=== PATIENT | female | born 1950 | race Asian ===

== ENCOUNTER 2020-04-09 04:59 | Day surgery (SDC) | payer OTHER ==
[2020-04-04 09:41] VITALS: BMI 24.1
[2020-04-09] MEDS ORDERED: MIDAZOLAM HCL 2 MG/2 ML SINGLE DOSE VIAL ONE (08:09)
[2020-04-09] MEDS ORDERED: PROPOFOL 20 ML ONE (08:09)
[2020-04-09] MEDS ORDERED: ePHEDrine SULFATE 50 MG/1 ML AMPULE ONE (08:10)
[2020-04-09] MEDS ORDERED: ONDANSETRON 4 MG/2 ML VIAL IVPUSH PRN (08:47)
[2020-04-09] MEDS ORDERED: oxyCODONE HCL 5 MG TABLET PO PRN (08:47)
[2020-04-09] MEDS ORDERED: CLINDAMYCIN PHOSPHATE 600 MG/4 ML VIAL ONE ×2 (08:55→10:03)
[2020-04-09] MEDS ORDERED: LACTATED RINGERS SOLUTION 1,000 ML IV SCH (09:00)
[2020-04-09] MEDS ORDERED: CLINDAMYCIN 900 MG PREMIX BAG IVPB ONE (10:14)
[2020-04-09] MEDS ORDERED: NEOSTIGMINE METHYLSULFATE 0.5 MG/ML - 10 ML MDV ONE (10:33)
[2020-04-09] MEDS ORDERED: BACITRACIN 15 GM TUBE TOPICAL OINTMENT ONE (12:41)
[2020-04-09] MEDS ORDERED: ACETAMINOPHEN INJECTION 100 ML IVPB ONE (13:20)
[2020-04-09] MEDS ORDERED: ACETAMINOPHEN 1000 MG/100 ML BAG IVPB ONE ×2 (13:31→16:05)
[2020-04-09 15:58] VITALS: PULSE 78
[2020-04-09 16:34] VITALS: BP 122/72; TEMP 97.8
== END 2020-04-09 16:50 | disposition home or self-care (01) ==
LOC: JASUSAT 04:59
PROVIDERS: ATTEND Obstetrics & Gynecology
PROC: 0UT04ZZ Resection of Right Ovary, Percutaneous Endoscopic Approach (ICD-10-PCS; principal; 2020-04-09 09:30)
DX: N83.201 Unspecified ovarian cyst, right side (principal)
CPT/HCPCS: 86922; 88307-TC; 94760; J0131

== ENCOUNTER 2022-03-26 08:40 | Day surgery (SDC) | payer OTHER ==
[2022-03-24 09:55] VITALS: BMI 23.7
[2022-03-26] MEDS: PHENYLEPHRINE 2.5% OPHTH SOLN 15 ML BOTTLE ONE ×3 (09:10→09:20)
[2022-03-26] MEDS: CYCLOPENTOLATE 2% OPHTH SOLN 2 ML BOTTLE ONE ×3 (09:10→09:20)
[2022-03-26] MEDS: TROPICAMIDE 1% OPHTH SOLN 15 ML BOTTLE ONE ×3 (09:10→09:20)
[2022-03-26] MEDS: CIPROFLOXACIN 0.3% EYE DROPS 5 ML BOTTLE ONE ×3 (09:10→09:20)
[2022-03-26] MEDS ORDERED: BSS (NA/CA/MG/K) BALANCED SALT SOLUTION OPHTH SOLN 15 ML BOTTLE ONE (09:59)
[2022-03-26] MEDS ORDERED: TETRACAINE 0.5% OPHTH SOLN 2 ML BOTTLE ONE (09:59)
[2022-03-26] MEDS ORDERED: CARBACHOL 0.01% INTRA-OCULAR 1.5 ML VIAL ONE (09:59)
[2022-03-26] MEDS ORDERED: LIDOCAINE 1% P/F 10 MG/ML VIAL ONE (09:59)
[2022-03-26] MEDS ORDERED: NEO/POLYMYX B SULF/DEXAMETH OPHTHALMIC 5ML BOTTLE ONE (09:59)
[2022-03-26] MEDS ORDERED: MIDAZOLAM HCL 2 MG/2 ML SINGLE DOSE VIAL ONE (10:22)
[2022-03-26] MEDS ORDERED: ONDANSETRON 4 MG/2 ML VIAL ONE (10:44)
[2022-03-26 11:30] VITALS: TEMP 98
[2022-03-26 11:34] VITALS: BP 112/72; PULSE 80; RESP 18
== END 2022-03-26 11:35 | disposition home or self-care (01) ==
LOC: FASU 08:40
PROVIDERS: ATTEND Ophthalmology
PROC: 08RK3JZ Replacement of Left Lens with Synthetic Substitute, Percutaneous Approach (ICD-10-PCS; principal; 2022-03-26 10:44)
DX: H26.8 Other specified cataract (principal)
CPT/HCPCS: 66984; V2632

== ENCOUNTER 2022-07-09 07:12 | Day surgery (SDC) | payer OTHER ==
[2022-07-04 12:56] VITALS: BMI 24.3
[2022-07-09] MEDS ORDERED: TETRACAINE 0.5% OPHTH SOLN 2 ML BOTTLE ONE (07:21)
[2022-07-09] MEDS ORDERED: EPINEPHrine/PF 1 MG/1 ML (1:1,000) AMPULE ONE (07:21)
[2022-07-09] MEDS ORDERED: LIDOCAINE 1% P/F 10 MG/ML VIAL ONE (07:21)
[2022-07-09] MEDS ORDERED: CARBACHOL 0.01% INTRA-OCULAR 1.5 ML VIAL ONE (07:22)
[2022-07-09] MEDS ORDERED: NEO/POLYMYX B SULF/DEXAMETH OPHTHALMIC 5ML BOTTLE ONE (07:22)
[2022-07-09] MEDS ORDERED: BSS (NA/CA/MG/K) BALANCED SALT SOLUTION OPHTH SOLN 15 ML BOTTLE ONE (07:22)
[2022-07-09] MEDS: PHENYLEPHRINE 2.5% OPTHALMIC DROP 2ML BOTTLE ONE ×3 (07:35→07:45)
[2022-07-09] MEDS: TROPICAMIDE 1% OPHTH SOLN 15 ML BOTTLE ONE ×3 (07:35→07:45)
[2022-07-09] MEDS: CYCLOPENTOLATE 2% OPHTH SOLN 2 ML BOTTLE ONE ×3 (07:35→07:45)
[2022-07-09] MEDS: CIPROFLOXACIN 0.3% EYE DROPS 5 ML BOTTLE ONE ×3 (07:35→07:45)
[2022-07-09] MEDS ORDERED: MIDAZOLAM HCL 2 MG/2 ML SINGLE DOSE VIAL ONE (08:51)
[2022-07-09] MEDS ORDERED: ONDANSETRON 4 MG/2 ML VIAL ONE (08:59)
[2022-07-09 09:39] VITALS: TEMP 97.8
[2022-07-09 09:55] VITALS: BP 110/69; PULSE 75; RESP 18
== END 2022-07-09 10:05 | disposition home or self-care (01) ==
LOC: FASU 07:12
PROVIDERS: ATTEND Ophthalmology
PROC: 08RJ3JZ Replacement of Right Lens with Synthetic Substitute, Percutaneous Approach (ICD-10-PCS; principal; 2022-07-09 09:03)
DX: H26.8 Other specified cataract (principal)
CPT/HCPCS: 66984; V2632

== ENCOUNTER 2024-03-12 16:44 | Observation (INO) | payer OTHER ==
[2024-03-12] MEDS ORDERED: ACETAMINOPHEN INJECTION 100 ML ONE (17:54)
[2024-03-12] MEDS: ACETAMINOPHEN 1000 MG/100 ML BAG IVPB ONE (18:10)
[2024-03-12 18:16] LABS: HEMATOCRIT 41.6 % (32.4-45.2); HEMOGLOBIN 14.1 GM/dL (10.7-15.3); MCH 30.6 pg (25.7-33.7); MCHC 33.9 g/dl (32.0-36.0); MEAN CELL VOLUME 90.4 fl (80-96); MEAN PLT VOLUME 7.9 fl (7.5-11.1); PLATELET COUNT 277 10^3/uL (134-434); RDW 12.2 % (11.6-15.6); WHITE BLOOD COUNT 19.2 K/mm3 (4.0-10.0)
[2024-03-12 18:23] LABS: INR 1.04 (0.83-1.09); PROTHROMBIN TIME (PATIENT) 11.7 SEC (9.7-13.0)
[2024-03-12 18:25] LABS: ACTIVATED PTT 34.8 SECONDS (25.2-36.5)
[2024-03-12 19:00] LABS: ANISOCYTOSIS 0; MACROCYTOSIS 0; POTASSIUM 3.9 mmol/L (3.5-5.1)
[2024-03-12 19:02] LABS: CALCIUM 9.6 mg/dL (8.5-10.1)
[2024-03-12 19:03] LABS: ALBUMIN 3.7 g/dl (3.4-5.0); BLOOD UREA NITROGEN 13.5 mg/dL (7-18)
[2024-03-12 19:06] LABS: CREATININE 0.8 mg/dL (0.55-1.3)
[2024-03-12 19:08] LABS: BILIRUBIN,TOTAL 0.5 mg/dL (0.2-1); TOT PROT 7.2 g/dl (6.4-8.2)
[2024-03-12 19:50] LABS: PH,URINE 5.5 (5.0-8.0); URINE APPEARANCE CLEAR; URINE BILIRUBIN NEGATIVE (NEGATIVE); URINE COLOR YELLOW; URINE GLUCOSE (UA) NEGATIVE (NEGATIVE); URINE KETONE NEGATIVE (NEGATIVE); URINE LEUK ESTERASE NEGATIVE (NEGATIVE); URINE NITRITE NEGATIVE (NEGATIVE); URINE PROTEIN NEGATIVE (NEGATIVE); URINE UROBILINOGEN 0.2 mg/dL (0.2-1.0)
[2024-03-12] MEDS ORDERED: IBUPROFEN 600 MG TABLET (FP) PO ONE (20:27)
[2024-03-12] MEDS: IBUPROFEN 600 MG TABLET (FP) PO ONE (20:30)
[2024-03-13] MEDS ORDERED: ACETAMINOPHEN 1000 MG/100 ML BAG IVPB PRN (02:57)
[2024-03-13] MEDS: INSULIN ASPART SLIDING SCALE (NOVOLOG) 1 VIAL SQ SCH (07:01)
[2024-03-13] MEDS: metoPROLOL SUCCINATE 25 MG TAB.SR.24H (FP) PO SCH (07:02)
[2024-03-13] MEDS: LEVOTHYROXINE NA 50 MCG TABLET (FP) PO SCH (07:02)
[2024-03-13 08:30] VITALS: BMI 20.5
[2024-03-13 09:02] LABS: BASO % 0.2 % (0-2.0); EOS % 0.2 % (0-4.5); HEMATOCRIT 39.6 % (32.4-45.2); HEMOGLOBIN 13.1 GM/dL (10.7-15.3); LYMPH % 12.5 % (8-40); MCH 30.2 pg (25.7-33.7); MCHC 33.1 g/dl (32.0-36.0); MEAN CELL VOLUME 91.3 fl (80-96); MEAN PLT VOLUME 8.1 fl (7.5-11.1); MONO % 7.9 % (3.8-10.2); NEUT % 79.2 % (42.8-82.8); PLATELET COUNT 268 10^3/uL (134-434); RBC 4.34 M/mm3 (3.60-5.2); WHITE BLOOD COUNT 11.2 K/mm3 (4.0-10.0)
[2024-03-13] MEDS: ACETAMINOPHEN 1000 MG/100 ML BAG IVPB ONE (09:11)
[2024-03-13 09:21] LABS: POTASSIUM 3.9 mmol/L (3.5-5.1)
[2024-03-13 09:24] LABS: ALBUMIN 3.5 g/dl (3.4-5.0)
[2024-03-13 09:27] LABS: CREATININE 0.7 mg/dL (0.55-1.3)
[2024-03-13 09:29] LABS: BILIRUBIN,TOTAL 0.6 mg/dL (0.2-1); PHOSPHOROUS 3.3 mg/dL (2.5-4.9); TOT PROT 6.8 g/dl (6.4-8.2)
[2024-03-13 09:30] LABS: CHOLESTEROL 200 mg/dL (50-200)
[2024-03-13 09:31] LABS: LDL CHOLESTEROL (ONLY SJRH) 105 mg/dL (5-100)
[2024-03-13 09:33] LABS: HDL CHOLESTEROL 74 mg/dL (40-60)
[2024-03-13] MEDS: ACETAMINOPHEN 1000 MG/100 ML BAG IVPB PRN (21:13)
[2024-03-14] MEDS: ENOXAPARIN NA (PORCINE) 40 MG/0.4 ML DISP.SYRIN SQ SCH (09:17)
[2024-03-14] MEDS: traMADol HCL 50 MG TABLET PO PRN (09:58)
[2024-03-14 14:14] VITALS: BP 110/62; PULSE 91; RESP 18; TEMP 97.7
== END 2024-03-14 18:23 | disposition home or self-care (01) ==
LOC: JER 16:44 → JERBED 03-13 02:00 → J6S 03-13 05:04
PROVIDERS: ADMIT Internal Medicine; ATTEND Internal Medicine
PROC: 3E033GC Introduction of Other Therapeutic Substance into Peripheral Vein, Percutaneous Approach (ICD-10-PCS; principal; 2024-03-13)
PROC: 3E013GC Introduction of Other Therapeutic Substance into Subcutaneous Tissue, Percutaneous Approach (ICD-10-PCS; 2024-03-13)
DX: S32.592A Other specified fracture of left pubis, initial encounter for closed fracture (principal); S52.135A Nondisplaced fracture of neck of left radius, initial encounter for closed fracture; I10 Essential (primary) hypertension; E78.5 Hyperlipidemia, unspecified; E03.9 Hypothyroidism, unspecified; R73.9 Hyperglycemia, unspecified; Z88.0 Allergy status to penicillin; Z79.84 Long term (current) use of oral hypoglycemic drugs; W19.XXXA Unspecified fall, initial encounter; Y93.9 Activity, unspecified; Y92.9 Unspecified place or not applicable
CPT/HCPCS: 36415; 71045-TC-FY; 72100-TC-FY; 72192-TC; 73070-TC-LT-FY; 73501-TC-LT-FY; 80053; 80061; 81003; 82962; 83036; 83735; 84100; 85025; 85610; 85730; 86850; 86900; 86901; 87086; 93005; 93010; 96372; 96374; 96376; 97116-GP; 97162-GP; 99285-25; G0378; J0131